=== PATIENT | female | born 1985 ===

== ENCOUNTER 2024-02-27 11:32 | Inpatient (IN) | payer SELFPAY ==
--- NOTE | 2024-02-27 11:36 | ED.GENADULT ---
HPI - General Adult General Chief complaint: Behavioral Concerns Stated complaint: SE 12,CALM/COOP PER EMS Time Seen by Provider: 02/27/24 11:36 Source: patient and EMS Mode of arrival: EMS Limitations: no limitations History of Present Illness ED Provider: Letha Ha PA-C HPI narrative: Patient is a 38 year old assigned female at with al history of depression presenting to the emergency department today on a section 12 for evaluation. Patient denies any SI, HI, AH, or VH. Patient's section 12 states that the patient is delusional, agitated, making threats, severe depression - medication non-compliant, and has impaired judgment/insight. Patient denies any dizziness, lightheadedness, abdominal pain, nausea, vomiting, fever, chills, blurry vision, double vision, loss of vision, chest pain, difficulty breathing, shortness of breath, back pain, night sweats, pain with urination, increased urinary frequency, increased urinary urgency, blood in her urine or stool, syncope or a near syncopal episode, recent trauma or falls, bowel incontinence, bladder incontinence, or any other complaints at this time. Relieving factors: none Exacerbating factors: none Associated symptoms: denies other symptoms Treatments prior to arrival: none Related Data Home Medications ?Medication ?Instructions ?Recorded ?Confirmed acetaminophen 325 mg tablet 650 mg PO Q6H PRN Pain 02/27/24 02/27/24 buprenorphine 8 mg-naloxone 2 mg 1 film buccal DAILY 02/27/24 02/27/24 sublingual film cholecalciferol (vitamin D3) 1,250 1,250 mcg PO QMONTH 02/27/24 02/27/24 mcg (50,000 unit) capsule clonidine HCl 0.1 mg tablet 0.1 mg PO BEDTIME 02/27/24 02/27/24 naproxen 250 mg tablet 250 mg PO BID PRN Pain 02/27/24 02/27/24 oxcarbazepine 300 mg tablet 300 mg PO BID 02/27/24 02/27/24 (Trileptal) polyethylene glycol 3350 17 gram 17 g PO DAILY PRN Constipation 02/27/24 02/27/24 oral powder packet vit with calcium-iron 1 tab PO DAILY 02/27/24 02/27/24 fum-folic acid 27 mg-1 mg tablet propranolol 10 mg tablet 10 mg PO BID 02/27/24 02/27/24 spironolactone 100 mg tablet 100 mg PO DAILY 02/27/24 02/27/24 trazodone 50 mg tablet 50 mg PO BEDTIME PRN Insomnia 02/27/24 02/27/24 ziprasidone HCl 40 mg capsule 40 mg PO DAILY 02/27/24 02/27/24 Allergies Allergy/AdvReac Type Severity Reaction Status Date / Time No Known Allergies Allergy Verified 02/27/24 12:07 Review of Systems Constitutional: Constitutional: Reports no additional constitutional complaints, Denies chills, Denies fever(s) and Denies night sweats Eyes: Eyes: Reports no additional eye complaints, Denies blurry vision, Denies change in vision, Denies diplopia, Denies eye discharge, Denies loss of vision and Denies eye pain ENT: Denies dizziness Cardiovascular: Cardiovascular: Reports no additional cardiovascular complaints, Denies chest pain, Denies lightheadedness, Denies Loss of Consciousness and Denies dyspnea Respiratory: Respiratory: Reports no additional respiratory complaints and Denies dyspnea Gastrointestinal: Gastrointestinal: Reports no additional gastrointestinal complaints, Denies abdominal pain, Denies melena, Denies hematochezia, Denies change in bowel habits and Denies change in stool character Genitourinary: Genitourinary: Denies hematuria, Denies urinary frequency, Denies dysuria, Denies urinary incontinence, Denies urinary hesitancy and Denies urinary urgency Musculoskeletal: Musculoskeletal: Reports no additional musculoskeletal complaints, Denies numbness and Denies tingling Neurologic: Denies dizziness, Denies loss of vision, Denies numbness and Denies tingling Psychiatric: Psychiatric: Reports no additional psychiatric complaints Endocrine: Endocrine: Reports no additional endocrine complaints Hematologic/Lymphatic: Hematologic/Lymphatic: Reports no additional hematologic/lymphatic complaints Allergic/Immunologic: Allergic/Immunologic: Reports no additional allergic/immunologic complaints PMFSH Past Medical History Attestation statement: The following information was validated with the patient. Source: old records reviewed and nursing notes reviewed Social History Social History Alcohol intake: current Alcohol intake frequency: holidays/special occasions only Smoked in Last 30 Days: Yes Use of substances other than those prescribed or required for medical reasons: No Advance Directives: No Advance Directives Information Provided: No Do you have a plan to hurt others: No Plan Physical Exam ED Vital Signs: Vital Signs - 24 hr 02/27/24 12:02 02/27/24 12:11 Respiratory Rate 18 18 Oxygen Delivery Method Room Air Room Air BMI result Body Mass Index 34.3 Const General: cooperative, no acute distress, alert and awake Nutritional Appearance: well nourished Orientation/consciousness: patient oriented x3 Limitations: no limitations HENMT Head: Yes normal to inspection and Yes atraumatic Ears: hearing grossly normal bilaterally and external ears normal General nose exam: Normal external nose present, no nasal discharge noted and no epistaxis Face and sinus: Yes normal facial exam, No abrasion and No laceration Mouth: Normal oral and palatal mucosa present, no drooling and no muffled voice Eyes General: appearance normal, both eyes and all related structures Periorbital: periorbital findings normal Eyelids: Yes eyelids normal Conjunctivae: conjunctivae normal Pupils: Equal, round and reactive pupils present EOM: EOMs intact bilaterally Neck Neck: Yes normal visual inspection, Yes full ROM and Yes no lymphadenopathy Chest Chest palpation & inspection: normal inspection of the chest Resp Effort & Inspection: normal respiratory effort and able to speak in complete sentences GI Inspection: Yes normal to inspection Neuro General: patient oriented x3 and moves all extremities Cranial nerves: Yes Equal, round and reactive pupils present Cognition (Neuro): normal cognition Extrem General: Yes normal to inspection, Yes full ROM and Yes capillary refill normal Psych Appearance: grossly normal Mental Status: mental status grossly normal Affect: normal affect Attitude: cooperative Thought process: Normal thought process present Thought content: Normal thought content present Insight: Good insight present (Psych) Medical Decision Making Medical Decision Making MDM Narrative: Patient is a 38 year old assigned female at with a history of depression presenting to the emergency department today on a section 12. Patient's physical exam was unremarkable. Patient's blood work is pending. Patient signed out to overnight CHONG pending lab work and CARE evaluation. Differential Diagnosis Differential Diagnoses: The differential diagnosis associated with the presentation includes Non compliant with medication Section 12 Crisis eval Admission/Observation Consideration of admission/observation: Escalation of care including admission/observation considered Patient's disposition will be determined after labs and CARE Eval. Independent Historian Clinical information obtained from an independent historian. History obtained from or confirmed by: EMS (EMS provided additional history and confirmed the history provided by the patient.) Discharge Plan Discharge Clinical Impression: Depression Patient Disposition: Still a Patient Prescriptions: No Action clonidine HCl 0.1 mg Tablet 0.1 mg PO BEDTIME acetaminophen 325 mg Tablet 650 mg PO Q6H PRN (Reason: Pain) trazodone 50 mg Tablet 50 mg PO BEDTIME PRN (Reason: Insomnia) polyethylene glycol 3350 17 gram Powder In Packet 17 g PO DAILY PRN (Reason: Constipation) spironolactone 100 mg Tablet 100 mg PO DAILY naproxen 250 mg Tablet 250 mg PO BID PRN (Reason: Pain) oxcarbazepine [Trileptal] 300 mg Tablet 300 mg PO BID Plus 27-1 mg Tablet 1 tab PO DAILY propranolol 10 mg Tablet 10 mg PO BID ziprasidone HCl 40 mg Capsule 40 mg PO DAILY Rx Instructions: give with food (meal/snack) cholecalciferol (vitamin D3) 1,250 mcg (50,000 unit) Capsule 1,250 mcg PO QMONTH Rx Instructions: 7th of the month at 0800 buprenorphine-naloxone 8-2 mg Film 1 film BUCCAL DAILY Print Language: Unknown
--- NOTE | 2024-02-27 11:51 | MHC.CARE ---
This senior technical writer spoke to Maggie from [facility] regarding patient. Patient is not allowed to go back to respite after discharge. Patient was at respite for a month and has reportedly been off her medications for a month and refused to meet with staff at the respite for assistance with housing and additional resources. Chemo phone number is [phone] Aravind (father) [phone] Yuridia Robin (PACT Program) [phone]
[2024-02-27 12:02] VITALS: RESP 18; BMI 34.3
[2024-02-27 12:11] VITALS: RESP 18
--- NOTE | 2024-02-27 12:28 | MHC.EDTECH ---
Patient refused vital signs and labs.
--- NOTE | 2024-02-27 21:17 | PC.NURSE ---
servomechanism designer made aware that the patient is a potential flight risk by patient observer/MHA. servomechanism designer presented to bedside to educate the patient on the need and reason for the elopement band and rationale for it being applied to her but she initially declined. Pt became loud, aggressive and bucked up and this RN after the final attempt stating You're not even a fucking nurse, you will not touch me . Security asked to bedside to assist with placement however shortly after application of the band to the patient's ankle she ripped it off and the band/securement was not strong enough to withstand this force. Pt remains in the hallway with continued observation at this time.
--- NOTE | 2024-02-27 22:49 | MHC.EDTECH ---
Patient refused vital signs and blood work
[2024-02-28 00:11] VITALS: RESP 16
--- NOTE | 2024-02-28 00:12 | MHC.EDTECH ---
This pct assumed care of Patient at 2300 ,Patient was asleep ,but just woke up ,wanted food ,had ham sandwich ,juice and cheese stick This pct asked Patient to check her vitals and draw labs ,Patient refused ,RN Ирина aware ,Resp taken ,Patient is calm ,1 :1 sitter at bedside ,will continue to monitor .
[2024-02-28 01:05] VITALS: RESP 18
--- NOTE | 2024-02-28 01:07 | MHC.EDTECH ---
t/w attempted to collect UA from pt. pt continues to refuse. rn aware.
--- NOTE | 2024-02-28 07:58 | PC.NURSE ---
Spoke with Jose Rafael at [facility] to perform med rec. Reviewed med rec in patients chart with Craig. Mantilla reporting that patient has been there for the last two months and patient has refused all medications except suboxone 8mg-2mg. [facility] patient would not take any prescribed meds uncless she was given xanax. [facility] patient took the suboxone (total of 30 strips) when she first arrived but then refused to go to [facility] to have suboxone continued and has been detoxed off suboxone. Jose Rafael stating prior to patient being at facility she was at [facility] rehab for 1 year and that in [facility] she was on Wellbutin 300mg daily. Jose Rafael reports patient refused to participate in all therapy/ group activities
--- NOTE | 2024-02-28 10:45 | PC.NURSE ---
pt requested and received cheese sticks and crackers pt is refusing blood work
[2024-02-28 14:31] VITALS: BP 128/86; PULSE 80; RESP 14; TEMP 36.4; O2SAT 98
--- NOTE | 2024-02-28 14:40 | PC.NURSE ---
report given to isabela bray
[2024-02-28] MEDS: ALPRAZolam 0.5 MG TABLET 1 MG PO (17:09)
--- NOTE | 2024-02-28 18:47 | PC.ADMIT ---
Mima is a 38 yr old female admitted to , on a 12b, for treatment of Psychosis. She was sent to [facility] [place] ambulance. states that she came here because he father wanted her to. Mima reportedly has had previous admissions to [facility] and [facility]. She is currently homeless. Reportedly is and had been staying at a respite facility this past month and was refusing meds. She was reportedly exhibiting delusional behavior, agitation and making threats. Mima exhibits extreme paranoia, refuses to sign anything and would not respond to any nursing intake questions. Mima adamantly refused skin check and clothing guide changer. Management made aware & MD ordered 5minute safety checks due to the refusal. She remains in the hospital attire she received in the ED. Mima was shown to her room & refused orientation to the unit. BRASS RECLAIMER prescribed 1mg Xanax prn, after patient requested 5mg (states it's been a year since taking). Patient accepted the medication very hesitantly after examining pills and packaging thoroughly.
[2024-02-29 08:00] VITALS: RESP 18
[2024-02-29] MEDS: diazePAM 5 MG TABLET PO ×2 (13:15→18:36)
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
[2024-03-01] MEDS: diazePAM 5 MG TABLET PO (01:50)
[2024-03-01] MEDS: Buprenorphine/Naloxone 8/2 mg FILM 1 FILM BUCCAL (08:34)
--- NOTE | 2024-03-01 12:10 | HO.PSYCHPN ---
Subjective Subjective Date of Service: 03/01/24 Reason For Visit: Psychosis Subjective Notes: Section 12B (03/02/24) Healthcare Proxy: No Guardianship: No Medical Problems Affecting Mental Status: No Interim History: Refusing medications. Accepting Valium prn Reports it is ineffective Discussed 12B with pt and options for CV or Section 7. I am leaving tomorrow, all of you need to be here, I do not. You are working with my father to make me have treatment. He put me here. I told you I take Xanax, what don't you understand about this, get it for me. Education attempted. Pt declines to process. In milieu, quiet, observant, angry, no physical violence yet is verbally caustic. Set parameters with pt for timing of Section 12B/Section [address] which she would not accept. Medication Compliance: Intermittent (valium prn) Side effects from medications: No Attending Groups: No Review of Systems Acute medical concerns: No Medical Review of Systems: unchanged Review of Systems Review of Systems Yes Unobtainable due to mental status Mental Status Exam Mental Status Exam Patient Appearance: Appropriate Patient Orientation: Person, Place, Time and Situation Level of Consciousness: Alert Patient Behavior: Guarded, Suspicious, Belligerent, Verbal Threats, Anxious, Fearful, Resistive to Care, Avoidant, Distractible, Good Eye Contact and Uncooperative Mood Description: Suspicious, Withdrawn, Constricted, Depressed, Hostile, Anxious and Angry Affect Description: Angry Patient Cognition Impaired: Yes Ability to Follow Directions: Fair Speech Pattern: Perseverating, Spontaneous Speech, Cofabulation and Pressured Memory Description: Remote Impaired Hallucinations: Auditory Delusions: Paranoid Ideation and Present Perceptual Disturbances: Derealization Thought Process: Illogical, Distracted, Rumination and Evasive Thought Content: positive for Obsessional Thoughts, positive for Circumstantial, positive for Perseveration, positive for Preoccupation, positive for Thought Blocking, positive for Suicidal Ideation (denies) and positive for Homicidal Ideation (denies) Depressive Symptoms: Increased Irritability Judgement: Poor Diagnostics Vital Signs (24Hr): BMI result Body Mass Index 34.3 Medications Medications Current Medications Acetaminophen (Acetaminophen 325 Mg Tablet) 650 mg PO Q6H PRN PRN Reason: Headache/Pain Mild Scale (1-3) Al Hydroxide/Mg Hydroxide (Magnesium Hydrox/Alum Hydrox 30 Ml Oral.Susp) 30 ml PO Q6H PRN PRN Reason: Heartburn/Nausea Buprenorphine/Naloxone (Buprenorphine/Naloxone 8/2 Mg Film) 1 film BUCCAL DAILY [facility] Last Admin: 03/01/24 08:34 Dose: 1 film Clonidine HCl (Clonidine Hcl 0.1 Mg Tablet) 0.1 mg PO BEDTIME [facility]; Protocol Last Admin: 02/29/24 20:50 Dose: Not Given Diazepam (Diazepam 5 Mg Tablet) 5 mg PO TID PRN PRN Reason: severe anxiety, panic Last Admin: 03/01/24 01:50 Dose: 5 mg Hydroxyzine HCl (Hydroxyzine Hcl 25 Mg Tablet) 25 mg PO Q6H PRN PRN Reason: Anxiety Magnesium Hydroxide (Milk Of Magnesia 30 Ml Oral.Susp) 30 ml PO DAILY PRN PRN Reason: Constipation Multivitamins/Vitamin C (Multivitamin Tablet) 1 tab PO DAILY [facility] Last Admin: 03/01/24 08:35 Dose: Not Given Nicotine (Nicotine 21 Mg Patch.Td24) 21 mg TRANSDERMA DAILY PRN PRN Reason: Nicotine Cravings Nicotine Polacrilex (Nicotine Polacrilex 2 Mg Gum) 4 mg BUCCAL Q2H PRN PRN Reason: Nicotine Cravings Non-Formulary Medication (Cholecalciferol (Vitamin D3)) 1,250 mcg PO Q28D [facility] Olanzapine (Olanzapine 5 Mg Tablet) 5 mg PO Q4H PRN PRN Reason: psychosis, agitation Oxcarbazepine (Oxcarbazepine 300 Mg Tablet) 300 mg PO BID [facility] Last Admin: 03/01/24 08:35 Dose: Not Given Polyethylene Glycol (Polyethylene Glycol 3350 17 Gm Powd.Pack) 17 gm PO DAILY PRN PRN Reason: Constipation Propranolol HCl (Propranolol Hcl 10 Mg Tablet) 10 mg PO BID [facility]; Protocol Last Admin: 03/01/24 08:36 Dose: Not Given Spironolactone (Spironolactone 25 Mg Tablet) 100 mg PO DAILY [facility]; Protocol Last Admin: 03/01/24 08:36 Dose: Not Given Trazodone HCl (Trazodone Hcl 50 Mg Tablet) 50 mg PO BEDTIME MRX1 PRN PRN Reason: Insomnia Ziprasidone (Ziprasidone 40 Mg Capsule) 40 mg PO DAILY [facility] Last Admin: 03/01/24 08:36 Dose: Not Given Allergies Allergies Allergy/AdvReac Type Severity Reaction Status Date / Time No Known Allergies Allergy Verified 02/27/24 12:07 Assessment & Plan Assessment & Plan (1) Schizoaffective disorder: Status: Acute Code(s): F25.9 - Schizoaffective disorder, unspecified Assessment and Plan: 03/01/24: Section XIIB. This expires 03/02. Discussed filing Section 7 with pt. Refuses medications Demanding Xanax Continue Valium prn (2) Panic disorder: Status: Acute Code(s): F41.0 - Panic disorder [episodic paroxysmal anxiety] Assessment and Plan: 03/01/24- Continue Valium prn Patient educated on: medication risk/benefits Reason for continued inpatient stay Substantial Risk for: rapid decompensation Time Spent With Patient Time: Total time managing care of this patient today ____ minutes.
--- NOTE | 2024-03-01 15:51 | PM.EVENT ---
Event Note Date of Service: 03/01/24 Event Note: Addiction consult placed to provide education to patient regarding missing doses of suboxone chart reviewed, patient declining many medications and also presenting as paranoid and angry on the unit consult deferred as it is not an emergent issue reconsult if needed Time Spent With Patient Time: Total time managing care of this patient today ____ minutes.
[2024-03-02 08:00] VITALS: RESP 18
[2024-03-02] MEDS: Buprenorphine/Naloxone 8/2 mg FILM 1 FILM BUCCAL (08:55)
--- NOTE | 2024-03-02 11:41 | HO.PSYCHPN ---
Subjective Subjective Date of Service: 03/02/24 Reason For Visit: Psychosis Subjective Notes: Conditional Voluntary Healthcare Proxy: No Guardianship: No Medical Problems Affecting Mental Status: No Interim History: Pt accepting Valium prn and Suboxone. Declines other meds. Family in [place] encouraging her to accept treatment. Continues to demand Xanax 5 mg daily. Pt refuses CV. 12 B . Section 7 filed. Rejected by sample box maker for not having enough to present in court for dangerousness. Father encouraged pt to sign CV. Pt asked to DC to [place] where her ex- and daughters are. We discussed the last time she did this-being arrested, sent to hospital due to assault to in front of the children. Increased anger, paranoia, then signed CV with father's encouragement. I am going if you don't give me what I want. Attempted to discuss Lexapro, Seroquel, Risperdal, Stelazine (FDA indicated for anxiety). Pt will not engage. Discussed med options other than benzodiazepines for trial-declines. Pt continues to present with paranoia, irrational thought process-not accepting that she cannot have current requests. Options she is chosing are endangering to herself and her family. Medication Compliance: No Side effects from medications: No Attending Groups: No Review of Systems Acute medical concerns: No Medical Review of Systems: unchanged Review of Systems Review of Systems Yes Unobtainable due to mental status Mental Status Exam Mental Status Exam Patient Appearance: Appropriate Patient Orientation: Person, Place, Time and Situation Level of Consciousness: Alert Patient Behavior: Guarded, Suspicious, Belligerent, Verbal Threats, Anxious, Fearful, Resistive to Care, Avoidant, Distractible, Good Eye Contact and Uncooperative Mood Description: Suspicious, Withdrawn, Constricted, Depressed, Hostile, Anxious and Angry Affect Description: Angry Patient Cognition Impaired: Yes Ability to Follow Directions: Fair Speech Pattern: Perseverating, Spontaneous Speech, Cofabulation and Pressured Memory Description: Remote Impaired Hallucinations: Auditory Delusions: Paranoid Ideation and Present Perceptual Disturbances: Derealization Thought Process: Illogical, Distracted, Rumination and Evasive Thought Content: positive for Obsessional Thoughts, positive for Circumstantial, positive for Perseveration, positive for Preoccupation, positive for Thought Blocking, positive for Suicidal Ideation (denies) and positive for Homicidal Ideation (denies) Depressive Symptoms: Increased Irritability Judgement: Poor Diagnostics Vital Signs (24Hr): Vital Signs - 24 hr 03/02/24 08:00 Respiratory Rate 18 BMI result Body Mass Index 34.3 Medications Medications Current Medications Acetaminophen (Acetaminophen 325 Mg Tablet) 650 mg PO Q6H PRN PRN Reason: Headache/Pain Mild Scale (1-3) Al Hydroxide/Mg Hydroxide (Magnesium Hydrox/Alum Hydrox 30 Ml Oral.Susp) 30 ml PO Q6H PRN PRN Reason: Heartburn/Nausea Buprenorphine/Naloxone (Buprenorphine/Naloxone 8/2 Mg Film) 1 film BUCCAL DAILY [facility], [facility] Last Admin: 03/02/24 08:55 Dose: 1 film Clonidine HCl (Clonidine Hcl 0.1 Mg Tablet) 0.1 mg PO BEDTIME [facility]; Protocol Last Admin: 03/01/24 22:34 Dose: Not Given Diazepam (Diazepam 5 Mg Tablet) 5 mg PO TID PRN PRN Reason: severe anxiety, panic Last Admin: 03/01/24 01:50 Dose: 5 mg Hydroxyzine HCl (Hydroxyzine Hcl 25 Mg Tablet) 25 mg PO Q6H PRN PRN Reason: Anxiety Magnesium Hydroxide (Milk Of Magnesia 30 Ml Oral.Susp) 30 ml PO DAILY PRN PRN Reason: Constipation Multivitamins/Vitamin C (Multivitamin Tablet) 1 tab PO DAILY [facility] Last Admin: 03/02/24 08:57 Dose: Not Given Nicotine (Nicotine 21 Mg Patch.Td24) 21 mg TRANSDERMA DAILY PRN PRN Reason: Nicotine Cravings Nicotine Polacrilex (Nicotine Polacrilex 2 Mg Gum) 4 mg BUCCAL Q2H PRN PRN Reason: Nicotine Cravings Olanzapine (Olanzapine 5 Mg Tablet) 5 mg PO Q4H PRN PRN Reason: psychosis, agitation Oxcarbazepine (Oxcarbazepine 300 Mg Tablet) 300 mg PO BID [facility] Last Admin: 03/02/24 08:57 Dose: Not Given Polyethylene Glycol (Polyethylene Glycol 3350 17 Gm Powd.Pack) 17 gm PO DAILY PRN PRN Reason: Constipation Propranolol HCl (Propranolol Hcl 10 Mg Tablet) 10 mg PO BID [facility]; Protocol Last Admin: 03/02/24 08:57 Dose: Not Given Spironolactone (Spironolactone 25 Mg Tablet) 100 mg PO DAILY [facility]; Protocol Last Admin: 09/20/24 08:57 Dose: Not Given Trazodone HCl (Trazodone Hcl 50 Mg Tablet) 50 mg PO BEDTIME MRX1 PRN PRN Reason: Insomnia Ziprasidone (Ziprasidone 40 Mg Capsule) 40 mg PO DAILY ANA Last Admin: 03/02/24 08:57 Dose: Not Given Allergies Allergies Allergy/AdvReac Type Severity Reaction Status Date / Time No Known Allergies Allergy Verified 02/27/24 12:07 Assessment & Plan Assessment & Plan (1) Schizoaffective disorder: Status: Acute Code(s): F25.9 - Schizoaffective disorder, unspecified Assessment and Plan: 03/01/24: Section XIIB. This expires 03/02. Discussed filing Section 7 with pt. Refuses medications Demanding Xanax Continue Valium prn 03/02 Section 7 denied by legal representatives Father convinced pt to sign CV Continues to demand Xanax DC Geodon Lexapro 10 mg daily Seroquel 75 mg tid prn anxiety (2) Panic disorder: Status: Acute Code(s): F41.0 - Panic disorder [episodic paroxysmal anxiety] Assessment and Plan: 03/01/24- Continue Valium prn Reason for continued inpatient stay Substantial Risk for: rapid decompensation Time Spent With Patient Time: Total time managing care of this patient today ____ minutes.
[2024-03-03 08:00] VITALS: RESP 18
[2024-03-03] MEDS: Buprenorphine/Naloxone 8/2 mg FILM 1 FILM BUCCAL (08:48)
--- NOTE | 2024-03-03 10:22 | HO.PSYCHPN ---
Subjective Subjective Date of Service: 03/03/24 Reason For Visit: Psychosis Interim History: Met with patient; discussed with team Patient says that she is not that great because they will not give her her medications; on inquiry she refers only to Xanax which she said her doctors have concluded that this is her medication and have been prescribing for for years; she acknowledges she has been off of it for the past year and that this year has been miserable, anxious, hard to get the house, hard to go to appointments and keeping her from feeling herself. She says she tried Valium which was ordered here and that it does not help at all so she is no longer taking it; she is refusing all other medications ordered for her to help with her anxiety saying she has tried with all different things, they have not worked and her doctors have concluded that she needs Xanax. Patient goes irritable and says that primary inpatient provider should not be ordering medications that the provider herself takes and that the patient does not takes and as I think we can all agree on that. Mental Status Exam Mental Status Exam Patient Appearance: Appropriate Patient Orientation: Person, Place, Time and Situation Level of Consciousness: Alert Patient Behavior: Guarded, Belligerent, Anxious, Resistive to Care, Avoidant, Distractible, Good Eye Contact and Uncooperative Mood Description: Constricted, Anxious and Angry Affect Description: Constricted and Angry Patient Cognition Impaired: Yes Ability to Follow Directions: Fair Speech Pattern: Perseverating, Spontaneous Speech and Pressured Memory Description: Remote Impaired Delusions: Paranoid Ideation and Present Perceptual Disturbances: Derealization Thought Process: Rumination and Goal Oriented Thought Content: positive for Obsessional Thoughts, positive for Circumstantial, positive for Perseveration, positive for Preoccupation, positive for Suicidal Ideation (denies) and positive for Homicidal Ideation (denies) Depressive Symptoms: Increased Irritability Judgement: Poor Diagnostics Vital Signs (24Hr): Vital Signs - 24 hr 03/03/24 08:00 Respiratory Rate 18 BMI result Body Mass Index 34.3 Medications Medications Current Medications Acetaminophen (Acetaminophen 325 Mg Tablet) 650 mg PO Q6H PRN PRN Reason: Headache/Pain Mild Scale (1-3) Al Hydroxide/Mg Hydroxide (Magnesium Hydrox/Alum Hydrox 30 Ml Oral.Susp) 30 ml PO Q6H PRN PRN Reason: Heartburn/Nausea Buprenorphine/Naloxone (Buprenorphine/Naloxone 8/2 Mg Film) 1 film BUCCAL DAILY [facility] Last Admin: 03/03/24 08:48 Dose: 1 film Clonidine HCl (Clonidine Hcl 0.1 Mg Tablet) 0.1 mg PO BEDTIME [facility]; Protocol Last Admin: 03/02/24 21:09 Dose: Not Given Diazepam (Diazepam 5 Mg Tablet) 5 mg PO TID PRN PRN Reason: severe anxiety, panic Last Admin: 03/01/24 01:50 Dose: 5 mg Escitalopram Oxalate (Escitalopram Oxalate 10 Mg Tablet) 10 mg PO DAILY [facility] Last Admin: 03/03/24 08:54 Dose: Not Given Hydroxyzine HCl (Hydroxyzine Hcl 25 Mg Tablet) 25 mg PO Q6H PRN PRN Reason: Anxiety Magnesium Hydroxide (Milk Of Magnesia 30 Ml Oral.Susp) 30 ml PO DAILY PRN PRN Reason: Constipation Multivitamins/Vitamin C (Multivitamin Tablet) 1 tab PO DAILY [facility] Last Admin: 03/03/24 08:54 Dose: Not Given Nicotine (Nicotine 21 Mg Patch.Td24) 21 mg TRANSDERMA DAILY PRN PRN Reason: Nicotine Cravings Nicotine Polacrilex (Nicotine Polacrilex 2 Mg Gum) 4 mg BUCCAL Q2H PRN PRN Reason: Nicotine Cravings Olanzapine (Olanzapine 5 Mg Tablet) 5 mg PO Q4H PRN PRN Reason: psychosis, agitation Oxcarbazepine (Oxcarbazepine 300 Mg Tablet) 300 mg PO BID [facility] Last Admin: 03/03/24 08:54 Dose: Not Given Polyethylene Glycol (Polyethylene Glycol 3350 17 Gm Powd.Pack) 17 gm PO DAILY PRN PRN Reason: Constipation Propranolol HCl (Propranolol Hcl 10 Mg Tablet) 10 mg PO BID [facility]; Protocol Last Admin: 03/03/24 08:54 Dose: Not Given Quetiapine Fumarate (Quetiapine Fumarate 25 Mg Tablet) 75 mg PO TID PRN PRN Reason: anxiety Spironolactone (Spironolactone 25 Mg Tablet) 100 mg PO DAILY [facility]; Protocol Last Admin: 03/03/24 08:54 Dose: Not Given Trazodone HCl (Trazodone Hcl 50 Mg Tablet) 50 mg PO BEDTIME MRX1 PRN PRN Reason: Insomnia Allergies Allergies Allergy/AdvReac Type Severity Reaction Status Date / Time No Known Allergies Allergy Verified 02/27/24 12:07 Assessment & Plan Assessment & Plan (1) Schizoaffective disorder: Status: Acute Code(s): F25.9 - Schizoaffective disorder, unspecified (2) Panic disorder: Status: Acute Code(s): F41.0 - Panic disorder [episodic paroxysmal anxiety] Assessment and Plan: 03/01/24- Continue Valium prn Plan Hospital course: 03/01/24: Section XIIB. This expires 03/02. Discussed filing Section 7 with pt. Refuses medications Demanding Xanax Continue Valium prn 03/02 Section 7 denied by legal representatives Father convinced pt to sign CV Continues to demand Xanax DC Geodon Lexapro 10 mg daily Seroquel 75 mg tid prn anxiety 03/03 difficult with which to engage; does not want any medications other than Xanax and has not taken them Patient educated on: diagnosis and medication risk/benefits Informed Consent: understands, does not understand and further education needed Reason for continued inpatient stay Substantial Risk for: med/psych decompensation Time Spent With Patient Time: Total time managing care of this patient today ____ minutes.
--- NOTE | 2024-03-04 08:25 | P.PNPSI_ITS ---
Subjective Subjective Date of Service: 03/04/24 Reason For Visit: Psychosis Interim History: Met with patient; discussed with team Patient difficult with which to engage, does not want to talk . Says she is tired. Did take Suboxone but has refused all other medications including Valiu m Mental Status Exam Mental Status Exam Narrative: Pt is alert and oriented; behavior is mostly not cooperative, fairly guarded, irritable, isolating to self; patient is not in distress; dressed in casual attire, unkempt; mood is described as tired and affect congruent, drowsy; eye contact limited; Speech is normal rate, volume and prosody and not pressured; intermittent of both psychomotor agitation/retardation present; thought process is goal directed; Thought content is on wanting to be back on Xanax; difficult to ascertain if delusional content but patient can express some paranoid thinking in response to staff inquiry; no SI/HI. Denies AVH. Patients insight and judgment impaired Diagnostics Vital Signs (24Hr): BMI result Body Mass Index 34.3 Medications Medications Current Medications Acetaminophen (Acetaminophen 325 Mg Tablet) 650 mg PO Q6H PRN PRN Reason: Headache/Pain Mild Scale (1-3) Al Hydroxide/Mg Hydroxide (Magnesium Hydrox/Alum Hydrox 30 Ml Oral.Susp) 30 ml PO Q6H PRN PRN Reason: Heartburn/Nausea Buprenorphine/Naloxone (Buprenorphine/Naloxone 8/2 Mg Film) 1 film BUCCAL DAILY ANA Last Admin: 03/03/24 08:48 Dose: 1 film Clonidine HCl (Clonidine Hcl 0.1 Mg Tablet) 0.1 mg PO BEDTIME ANA; Protocol Last Admin: 03/03/24 20:39 Dose: Not Given Diazepam (Diazepam 5 Mg Tablet) 5 mg PO TID PRN PRN Reason: severe anxiety, panic Last Admin: 03/01/24 01:50 Dose: 5 mg Escitalopram Oxalate (Escitalopram Oxalate 10 Mg Tablet) 10 mg PO DAILY ANA Last Admin: 03/03/24 08:54 Dose: Not Given Hydroxyzine HCl (Hydroxyzine Hcl 25 Mg Tablet) 25 mg PO Q6H PRN PRN Reason: Anxiety Magnesium Hydroxide (Milk Of Magnesia 30 Ml Oral.Susp) 30 ml PO DAILY PRN PRN Reason: Constipation Multivitamins/Vitamin C (Multivitamin Tablet) 1 tab PO DAILY ANA Last Admin: 03/03/24 08:54 Dose: Not Given Nicotine (Nicotine 21 Mg Patch.Td24) 21 mg TRANSDERMA DAILY PRN PRN Reason: Nicotine Cravings Nicotine Polacrilex (Nicotine Polacrilex 2 Mg Gum) 4 mg BUCCAL Q2H PRN PRN Reason: Nicotine Cravings Olanzapine (Olanzapine 5 Mg Tablet) 5 mg PO Q4H PRN PRN Reason: psychosis, agitation Oxcarbazepine (Oxcarbazepine 300 Mg Tablet) 300 mg PO BID [facility] Last Admin: 03/03/24 20:40 Dose: Not Given Polyethylene Glycol (Polyethylene Glycol 3350 17 Gm Powd.Pack) 17 gm PO DAILY PRN PRN Reason: Constipation Propranolol HCl (Propranolol Hcl 10 Mg Tablet) 10 mg PO BID [facility]; Protocol Last Admin: 03/03/24 20:40 Dose: Not Given Quetiapine Fumarate (Quetiapine Fumarate 25 Mg Tablet) 75 mg PO TID PRN PRN Reason: anxiety Spironolactone (Spironolactone 25 Mg Tablet) 100 mg PO DAILY [facility]; Protocol Last Admin: 03/03/24 08:54 Dose: Not Given Trazodone HCl (Trazodone Hcl 50 Mg Tablet) 50 mg PO BEDTIME MRX1 PRN PRN Reason: Insomnia Allergies Allergies Allergy/AdvReac Type Severity Reaction Status Date / Time No Known Allergies Allergy Verified 02/27/24 12:07 Assessment & Plan Assessment & Plan (1) Schizoaffective disorder: Status: Acute Code(s): F25.9 - Schizoaffective disorder, unspecified (2) Panic disorder: Status: Acute Code(s): F41.0 - Panic disorder [episodic paroxysmal anxiety] Assessment and Plan: 03/01/24- Continue Valium prn Plan Hospital course: 03/01/24: Section XIIB. This expires 03/02. Discussed filing Section 7 with pt. Refuses medications Demanding Xanax Continue Valium prn 03/02 Section 7 denied by legal representatives Father convinced pt to sign CV Continues to demand Xanax DC Geodon Lexapro 10 mg daily Seroquel 75 mg tid prn anxiety 03/03 difficult with which to engage; does not want any medications other than Xanax and has not taken them 03/04 remains difficult with which to engage; did not want to talk to contract technical writer, saying she was tired; took Suboxone but no other medications Patient educated on: diagnosis and medication risk/benefits Informed Consent: does not understand Reason for continued inpatient stay Substantial Risk for: rapid decompensation Time Spent With Patient Time: Total time managing care of this patient today ____ minutes.
[2024-03-04] MEDS: Buprenorphine/Naloxone 8/2 mg FILM 1 FILM BUCCAL (08:55)
[2024-03-04 19:42] VITALS: RESP 15
[2024-03-04] MEDS: diazePAM 5 MG TABLET PO (20:07)
[2024-03-04] MEDS: cloNIDine HCL 0.1 MG TABLET PO (20:07)
[2024-03-04] MEDS: traZODone HCL 50 MG TABLET PO (20:07)
[2024-03-05] MEDS: Buprenorphine/Naloxone 8/2 mg FILM 1 FILM BUCCAL (09:00)
--- NOTE | 2024-03-05 09:57 | PM.PSYDC ---
DS: Providers Provider Date of Service: 03/05/24 Date of admission: 02/28/24 13:23 Date of discharge: 03/05/24 Primary care physician: Unknown Physician Admitting clinician: Chitra Cabrales Attending physician on admission: Chapin Briggs Consults: 02/29/24 10:17 Addiction Medicine Routine Consulting Provider: Addiction Covering Reason for consultation: Pt education re suboxone-pt is paranoid, she is starting and stopping doses Attending physician on discharge: Chapin Briggs Discharging clinician: Chitra Cabrales DS: Diagnosis Discharge Diagnosis (1) Schizoaffective disorder: Status: Acute (2) Panic disorder: Status: Acute Mental Status Exam Mental Status Exam Narrative: Pt is alert and oriented; behavior is mostly not cooperative, fairly guarded, irritable, isolating to self; patient is not in distress; dressed in casual attire, unkempt; mood is described as tired and affect congruent, drowsy; eye contact limited; Speech is normal rate, volume and prosody and not pressured; intermittent of both psychomotor agitation/retardation present; thought process is goal directed; Thought content is on wanting to be back on Xanax; difficult to ascertain if delusional content but patient can express some paranoid thinking in response to staff inquiry; no SI/HI. Denies AVH. Patients insight and judgment impaired DS: Summary Hospital Course Hospital Course: Admission to adult psychiatry for exacerbation of schizoaffective disorder, panic disorder and substance use. Pt sent from [facility] respite after a month of noncompliance with medications, treatment and aftercare planning. Pt has PACT team affiliation however would not allow communication with this team. Upon admission, pt demanded Xanax 5 mg daily and Percocet, stating this was the only regime which worked for her. She refused all other agents. She agreed to trial Valium, but refused to continue, stating Xanax and Percocet were the only meds she would accept. Pt had no behavioral issues on the unit. She presented with hostility, anger and dismissive demeanor. She was noted to have paranoia at times. She denied SI, HI and provided her own self care without interruption. There were no sx of panic noted. Her father in [place] was very supportive of team efforts to assist pt, however, she persisted with demanding of these two medications. Section 7 was attempted, however, hospital attorneys declined citing pt not being at risk. Pt agreed to sign a CV when her Section 12 had , however, would not participate in any form of treatment. She did accept a few prn medications over the weekend, however, declined to begin a regime to address her identified issues. She was discharged outright, declining medications or referrals. Status at Discharge Functional status at discharge: independent ambulation Overall status at discharge: patient is back to baseline Time Spent with Patient Time attestation: Total time managing care of this patient today ____ minutes. Time spent: Less than 30 minutes Discharge Plan Discharge Anticipated Discharge Date/Time: 03/02/24 14:47 Patient Disposition: Senior Care Discharge Diagnosis: Schizoaffective Disorder Panic Disorder Referrals: Physician,Cecilio J [Primary Care Provider] - 1 Week Discharge Medications: Discontinued clonidine HCl 0.1 mg Tablet 0.1 mg PO BEDTIME acetaminophen 325 mg Tablet 650 mg PO Q6H PRN (Reason: Pain) trazodone 50 mg Tablet 50 mg PO BEDTIME PRN (Reason: Insomnia) polyethylene glycol 3350 17 gram Powder In Packet 17 g PO DAILY PRN (Reason: Constipation) spironolactone 100 mg Tablet 100 mg PO DAILY naproxen 250 mg Tablet 250 mg PO BID PRN (Reason: Pain) oxcarbazepine [Trileptal] 300 mg Tablet 300 mg PO BID Plus 27-1 mg Tablet 1 tab PO DAILY propranolol 10 mg Tablet 10 mg PO BID ziprasidone HCl 40 mg Capsule 40 mg PO DAILY Rx Instructions: give with food (meal/snack) cholecalciferol (vitamin D3) 1,250 mcg (50,000 unit) Capsule 1,250 mcg PO QMONTH Rx Instructions: 7th of the month at 0800 buprenorphine-naloxone 8-2 mg Film 1 film BUCCAL DAILY Discharge Orders: Discharge Order (Routine); Ordered 03/05/24 Ordered By: Chitra Cabrales Diet: Advance to usual diet Activity on Discharge: As tolerated Stand Alone Forms: Patient Portal Discharge page, Community Support Print Language: Unknown Care Plan Goals: Mood and Behavioral Stabilization Health Concerns: Mood and Behavioral Stabilization Plan of Treatment: Pt declines treatment Assessment: Pt declines treatment She will proceed with her search for Xanax prescriber Discharge Date/Time: 03/05/24 11:16
--- NOTE | 2024-03-05 12:04 | PC.NURSE ---
Pt signed discharge packet bur REFUSED to sign belongings forms and pt own meds forms. Forms witnessed/signed by two RN's.
== END 2024-03-05 11:16 | disposition home or self-care (01) | DRG 885 ==
LOC: HO.ED 02-28 08:58 → HO.PM5 02-28 13:27
PROVIDERS: Admitting Provider Clinical Nurse Specialist Psychiatric/Mental Health, Adult; Emergency Provider Emergency Medicine; Visit Provider Clinical Nurse Specialist Psychiatric/Mental Health, Adult
DX: F25.9 Schizoaffective disorder, unspecified (principal); F41.0 Panic disorder [episodic paroxysmal anxiety]; Z91.148 Patient's other noncompliance with medication regimen for other reason; Z79.899 Other long term (current) drug therapy
CPT/HCPCS: 99285; S9485

== ENCOUNTER → 2024-02-28 13:23 | Outpatient (BNV) | payer SELFPAY | PROVIDERS: Admitting Provider Clinical Nurse Specialist Psychiatric/Mental Health, Adult; Emergency Provider Emergency Medicine; Visit Provider Clinical Nurse Specialist Psychiatric/Mental Health, Adult | DX: F25.9 Schizoaffective disorder, unspecified (principal); F41.0 Panic disorder [episodic paroxysmal anxiety] | CPT/HCPCS: 90792; 99231; 99232; 99238 ==